=== PATIENT | female | born 1985 | race African-American/Black ===

== ENCOUNTER 2017-04-15 14:28 | Emergency (ER) | payer SELFPAY ==
[~2017-04-15] VITALS: Ht 149.9 cm; Wt 74.0 kg
[~2017-04-15 14:28] MED LIST: NOHOMEMEDS
[2017-04-15 14:31] VITALS: BP 134/87
== END 2017-04-15 16:35 | disposition left against medical advice (07) ==
LOC: EME 14:28
DX: T23.002A Burn of unspecified degree of left hand, unspecified site, initial encounter (principal); Z53.21 Procedure and treatment not carried out due to patient leaving prior to being seen by health care provider
CPT/HCPCS: 99281; 99283

== ENCOUNTER 2018-03-31 08:55 | Emergency (ER) | payer SELFPAY ==
[~2018-03-31] VITALS: Ht 162.6 cm; Wt 77.6 kg
[2018-03-31 12:16] VITALS: BP 112/78
== END 2018-03-31 12:17 | disposition home or self-care (01) ==
LOC: EME 08:55
DX: L25.9 Unspecified contact dermatitis, unspecified cause (principal)
CPT/HCPCS: 99281; 99283

== ENCOUNTER 2018-07-02 10:46 | Emergency (ER) | payer SELFPAY ==
[~2018-07-02] VITALS: Ht 149.9 cm; Wt 80.1 kg
[2018-07-02 14:22] VITALS: BP 126/91
== END 2018-07-02 14:48 | disposition home or self-care (01) ==
LOC: EME 10:46
DX: H61.23 Impacted cerumen, bilateral (principal); F17.200 Nicotine dependence, unspecified, uncomplicated
CPT/HCPCS: 99281; 99283